=== PATIENT | male | born 1985 | race Caucasian/White ===

== ENCOUNTER 2021-10-27 08:06 | Outpatient (CLI) | payer OTHER, SELFPAY ==
--- NOTE | 2021-10-27 08:47 | MRI_ITS ---
STUDY: MRI THORACIC SPINE WITHOUT CONTRAST REASON FOR EXAM: Male, 35 years old. 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 COMPARISON: None. FINDINGS: Normal kyphosis of the thoracic spine. There is no substantial scoliosis. T1-2, T2-3, T3-4, T4-5, T5-6, T6-7, T7-8, T8-9, T9-10, T10-11, T11-12: Left-sided ovoid T7 benign vertebral body hemangioma. Normal vertebral body heights and endplates. Normal disc space heights, hydration and morphology throughout the thoracic spine. Normal visualized thoracic cord. Normal conus medullaris that terminates at the T12-L1 disc space level. The soft tissue structures are unremarkable. MRI/Spine Thoracic (Routine) IMPRESSION: 1. Normal unenhanced MRI examination of the thoracic spine. 2. Left-sided ovoid T7 benign vertebral body hemangioma. Electronically Signed: Quentin Floyd MD at 11:15 EST ,
== END 2021-10-27 23:59 | disposition home or self-care (01) ==
PROVIDERS: PCP Family Medicine; Referring Provider Family Medicine; Visit Provider Family Medicine
DX: B02.29 Other postherpetic nervous system involvement (principal)
CPT/HCPCS: 72146